=== PATIENT | female | born 1975 | race Caucasian/White ===

== ENCOUNTER 2020-04-22 12:32 | Emergency (ER) | payer OTHER ==
[~2020-04-22] VITALS: Ht 165.1 cm; Wt 90.0 kg
[~2020-04-22 12:32] MED LIST: ATEN-73 PO; METF-960 PO
[2020-04-22] MEDS ORDERED: HYDR-1475 PO (13:01)
[2020-04-22] MEDS ORDERED: ONDANSETRON HCL 4 MG/2 ML VIAL IVP ONE (13:15)
[2020-04-22] MEDS ORDERED: SODIUM CHLORIDE 0.9% 1,000 ML IV ONE (13:15)
[2020-04-22 13:28] LABS: COVID AG,FIA SOURCE NASOPHARYNGEAL
[2020-04-22 13:43] LABS: EOSINOPHILS % (AUTO) 0.5 % (1.0-6.0); HEMATOCRIT 38.8 % (36-46); HEMOGLOBIN 13.3 g/dL (12.0-16.0); LYMPHOCYTES # (AUTO) 2.1 K/uL (1.0-4.8); LYMPHOCYTES % (AUTO) 21.6 % (22.0-44.0); MEAN CORPUSCULAR HEMOGLOBIN 29.9 pg (26.0-34.0); MEAN CORPUSCULAR HGB CONC 34.3 G/dL (31.0-37.0); MEAN CORPUSCULAR VOLUME 87 fL (80-100); MONOCYTES # (AUTO) 0.5 K/uL (0.1-1.0); MONOCYTES % (AUTO) 5.4 % (2.0-9.0); NEUTROPHILS % (AUTO) 71.5 % (40.0-70.0); PLATELET COUNT (AUTO) 218 K/uL (150-450); RED BLOOD CELL COUNT(AUTO) 4.44 MIL/uL (4.00-5.20); RED CELL DISTRIBUTION WIDTH 13.5 % (11.5-14.5)
[2020-04-22 13:52] LABS: ANION GAP 10 mmol/L (8-16); CARBON DIOXIDE 26 mmol/L (22-29); CHLORIDE 101 mmol/L (98-107); CREATININE 0.67 mg/dL (0.60-1.30); GLOMERULAR FILTR. RATE CALC > 60 mL/min (>60); GLUCOSE,RANDOM 135 mg/dL (70-110); POTASSIUM 3.3 mmol/L (3.5-5.1); SODIUM SERUM 137 mmol/L (136-145); UREA NITROGEN, BLOOD 10 mg/dL (7-18)
[2020-04-22 14:04] LABS: ALANINE AMINOTRANSFERASE 42 U/L (12-78); ALBUMIN 3.3 g/dL (3.4-5.0); ALKALINE PHOSPHATASE 49 U/L (46-116); ASPARTATE AMINOTRANSFERASE 19 U/L (15-37); BILIRUBIN,TOTAL 0.7 mg/dL (0.1-1.0); HCG,QUANTITATIVE < 1 mIU/mL (0-6); LIPASE 257 U/L (73-393); TOTAL PROTEIN, SERUM 7.2 g/dL (6.4-8.2)
[2020-04-22] MEDS ORDERED: POTASSIUM CHLORIDE 20 MEQ ER TABLET PO ONE (15:15)
[2020-04-22 15:27] LABS: APPEARANCE,URINE CLEAR (CLEAR); BILIRUBIN,URINE NEGATIVE (NEGATIVE); GLUCOSE, URINE (UA) NEGATIVE (NEGATIVE); KETONES,URINE NEGATIVE (NEGATIVE); LEUKOCYTE ESTERASE ,URINE NEGATIVE (NEGATIVE); NITRATE,URINE NEGATIVE (NEGATIVE); OCCULT BLOOD,URINE NEGATIVE (NEGATIVE); PROTEIN,URINE NEGATIVE (NEGATIVE); UROBILINOGEN,URINE 0.2 mg/dL (<=1.0)
[2020-04-22] MEDS ORDERED: PB/HYOSCY/ATR/SCOP/LIDO/MAALOX 55 ML BOTTLE PO ONE (16:30)
[2020-04-22 16:45] VITALS: BP 148/66
== END 2020-04-22 17:00 | disposition home or self-care (01) ==
LOC: EMS 12:32
DX: K29.70 Gastritis, unspecified, without bleeding (principal); I10 Essential (primary) hypertension; Z20.822 Contact with and (suspected) exposure to COVID-19; Z90.710 Acquired absence of both cervix and uterus
CPT/HCPCS: 36415; 80053; 81003; 83690; 84702; 85025; 87426; 96361; 96374; 99283; J2405; J7030

== ENCOUNTER 2021-06-10 15:53 | Emergency (ER) | payer OTHER ==
[~2021-06-10] VITALS: Ht 167.6 cm; Wt 90.0 kg
[~2021-06-10 15:53] MED LIST changes: -ATEN-73 PO; +HYDR25TA2 PO; +METF-1211 PO; -METF-960 PO
[2021-06-10] MEDS ORDERED: METHOCARBAMOL 500 MG TABLET PO ONE (18:00)
[2021-06-10] MEDS ORDERED: KETOROLAC TROMETHAMINE 30 MG/ML VIAL IM ONE (18:00)
[2021-06-10] MEDS ORDERED: LIDOCAINE 5% TRANSDERMAL PATCH TD ONE (18:00)
[2021-06-10] MEDS ORDERED: METH-659 PO (18:38)
[2021-06-10] MEDS ORDERED: IBUP-2070 PO (18:39)
[2021-06-10 20:11] VITALS: BP 133/70
== END 2021-06-10 20:13 | disposition home or self-care (01) ==
LOC: EMS 15:59
DX: M54.2 Cervicalgia (principal); E11.9 Type 2 diabetes mellitus without complications; I10 Essential (primary) hypertension; Z79.84 Long term (current) use of oral hypoglycemic drugs
CPT/HCPCS: 96372; 99283; J1885

== ENCOUNTER 2023-11-25 15:53 | Emergency (ER) | payer OTHER ==
[~2023-11-25] VITALS: Ht 165.1 cm; Wt 88.5 kg
[~2023-11-25 15:53] MED LIST changes: -HYDR25TA2 PO; +LOSA-381 PO
[2023-11-25] MEDS ORDERED: METF-444 PO (15:59)
[2023-11-25 16:02] VITALS: BP 158/89; PULSE 81; RESP 16; TEMP 98.4; O2SAT 98
== END 2023-11-25 19:30 | disposition left against medical advice (07) ==
LOC: EMS 15:53
DX: M25.561 Pain in right knee (principal); Z53.21 Procedure and treatment not carried out due to patient leaving prior to being seen by health care provider
CPT/HCPCS: 82962

== ENCOUNTER 2024-04-02 14:40 | Emergency (ER) | payer OTHER ==
[~2024-04-02 14:40] MED LIST changes: -METF-1211 PO; +METF-444 PO
== END 2024-04-02 16:03 | disposition left against medical advice (07) ==
LOC: EMS 14:40
DX: Z53.21 Procedure and treatment not carried out due to patient leaving prior to being seen by health care provider (principal)